=== PATIENT | female | born 1965 | race Caucasian/White ===

== ENCOUNTER 2016-09-24 06:18 | Day surgery (SDC) | payer OTHER ==
[2016-09-22 10:01] LABS: BASOPHILS 0.1 %; BASOPHILS ABSOLUTE 0.01 10/3/uL (0.0-0.16); EOSINOPHILS 0.3 %; EOSINOPHILS ABSOLUTE 0.02 10/3/uL (0.0-0.53); IMMATURE GRANULOCYTES 0.3 %; IMMATURE GRANULOCYTES ABSOLUTE 0.02 10/3/uL (0.0-0.11); LYMPHOCYTES 21.8 %; LYMPHOCYTES ABSOLUTE 1.46 10/3/uL (0.67-4.30); MEAN CORPUS HGB CONC 33.6 g/dL (32.0-36.0); MEAN CORPUSCULAR HEMOGLOB 31.4 pg (26.0-34.0); MEAN PLATELET VOLUME 9.9 fL (9.2-13.0); MONOCYTES 7.6 %; MONOCYTES ABSOLUTE 0.51 10/3/uL (0.21-1.20); NEUTROPHILS 69.9 %; NEUTROPHILS ABSOLUTE 4.69 10/3/uL (2.02-8.40); PLATELET COUNT 188 10/3/uL (150-400); RBC DISTRIBUTION WIDTH 12.5 % (12.0-16.0); RED CELL COUNT 4.52 10/6/uL (4.0-5.6); WHITE BLOOD CELLS 6.7 10/3/uL (4.5-10.5)
[2016-09-22 10:02] LABS: HEMATOCRIT 42.2 % (36.0-48.0); HEMOGLOBIN 14.2 g/dL (12.0-16.0); MANUAL DIFF NO %; MEAN CORPUSCULAR VOLUME 93.4 fL (80-100)
[2016-09-22 10:32] LABS: CA 125 II 5.9 U/ML (< 35.0); CHLORIDE, SERUM 109 MMOL/L (96-112); CO2 (CARBON DIOXIDE) 25 MMOL/L (24-34); CREATININE 1.25 MG/DL (0.55-1.02); GFR AFRICAN AMERICAN 58 ML/MIN (>=60); GFR NON AFRICAN AMERICAN 50 ML/MIN (>=60); GLUCOSE, SERUM 97 MG/DL (60-99); POTASSIUM, SERUM 4.7 MMOL/L (3.5-5.3); SODIUM, SERUM 141 MMOL/L (135-148)
[2016-09-22 10:34] LABS: BUN (BLOOD UREA NITROGEN) 14 MG/DL (6-23); CALCIUM, SERUM 9.1 MG/DL (8.5-10.4)
--- NOTE | ~2016-09-24 | OP ---
Record Of Operation [facility] [address] [place]. [address] NAME: PHILLY RAI : 65 STATUS : REG [facility]#: [id number] AGE: 51 ADM/REG DATE : 09/24/16 MR#: [id number] REPORT SERV DATE: 09/24/16 DICTATED BY: DANDY MALLORY DATE: 09/24/16 REPORT STATUS : Draft TRANSCRIBED BY: MODL DATE: 09/24/16 DATE OF PROCEDURE: 09/24/2016 PREOPERATIVE DIAGNOSIS: Ovarian cyst. POSTOPERATIVE DIAGNOSIS: Benign left ovarian cyst. PROCEDURE: Laparoscopic hysterectomy with bilateral salpingo-oophorectomy via the da Jameel laparoscopic robotic instrument, CPT code 89063. FLIGHT LINE SERVICE ATTENDANT: Juani. ESTIMATED BLOOD LOSS: 50 mL. FLUIDS: 1 L of crystalloid. COMPLICATIONS: None. INDICATIONS AND FINDINGS: This is a 51-year-old female who recently had been diagnosed with a renal cell carcinoma and underwent a right radical nephrectomy. She had a CT scan and was found to have an incidental ovarian mass. She is now being taken to the operating room for removal. Her preoperative CA-125 was normal. Intraoperatively, the mass was removed intact, examined on the back table, and appeared to be consistent with a benign ovarian cyst on the left. Her right ovary was normal. The uterus appeared to be normal. Postprocedure, a cystoscopy was performed. She had normal ureteral flow from the left kidney. There was no evidence of bladder defect. Prior to the induction of anesthesia, the patient was treated with Lovenox. She was also given prophylactic antibiotics. PROCEDURE IN DETAIL: The patient was taken to the operating room and she was placed in supine position for administration of general anesthesia. She was then placed in dorsal lithotomy position and prepped and draped in usual sterile fashion. The cervix was visualized and a BIENVENIDO uterine manipulator was placed. A NICHOLAS ring was sutured to the patient's cervix. Our attention was then turned towards the anterior abdominal wall, where an incision was made approximately 25 cm above the pubic symphysis and taken down to the underlying layer of fascia. The fascia was grasped with two sutures of 0 Vicryl, tented up, and entered sharply. The peritoneum was then tented up, entered sharply, and a laparoscopic trocar was placed under direct visualization. The abdominal cavity was insufflated, two additional 8 mm trocars were placed, one additional 12 mm trocar was placed. The patient was then docked to the laparoscopic robotic instrument and the remainder of the procedure was performed via the da Jameel with the above findings noted. Pelvic washings were taken. The retroperitoneal spaces were opened via the round ligaments, which were grasped with bipolar cautery, cauterized, and transected bilaterally. The uterine arteries were identified at their origin and hemoclips were placed to ensure long-term hemostasis. The gonadal vessels were isolated. Hemoclips were placed to ensure long-term hemostasis. They were then coagulated and transected bilaterally. The uterine arteries were then skeletonized at the level of the cervix, grasped with bipolar cautery, cauterized, and Record Of Operation [address] [address] NAME: PHILLY RAI : 65 STATUS : [place] [facility] [place]#: [id number] AGE: 51 ADM/REG DATE : 09/24/16 MR#: [id number] REPORT SERV DATE: 09/24/16 DICTATED BY: DANDY MALLORY DATE: 09/24/16 REPORT STATUS : Draft TRANSCRIBED BY: MODL DATE: 09/24/16 transected bilaterally. Anteriorly, a bladder flap was created and taken down to a level well below the cervix. The uterosacral cardinal complexes were then taken down with unipolar cautery and a circumferential incision was made around the cervix and vagina, and the uterus, tubes, ovaries, and cervix were delivered through the vagina with the above findings noted. The vaginal cuff was then closed with a running stitch of #1 PDS V-Loc. The pelvis was irrigated with copious amounts of warm water. All pedicles were inspected and found to be hemostatic. The laparoscopic instruments were removed. The gas was expelled from the abdomen. The initial incision was closed with 0 Vicryl at the fascia. The 12 mm port was also closed with 0 Vicryl at the fascia. The 8 mm ports were closed with 4-0 Vicryl at the skin and Dermabond was placed. Postprocedure, a cystoscopy was performed with the above findings noted. At the completion of the procedure, the anesthesia was reversed. The patient was extubated and brought to the recovery room in stable condition. ESAU/CONYL Dandy Mallory M.D. / [id number] CC: Linda Horta NP
[~2016-09-24 06:18] MED LIST: *DENIES; ATEN50 PO; DSS PO; PCET PO; PROPYLTHIOUR50 MG OR
== END 2016-09-24 18:06 | disposition home or self-care (01) ==
LOC: SDC 06:18
PROVIDERS: Obstetrics & Gynecology Gynecologic Oncology
PROC: 0UT24ZZ Resection of Bilateral Ovaries, Percutaneous Endoscopic Approach (ICD-10-PCS; 2016-09-24)
PROC: 0UT74ZZ Resection of Bilateral Fallopian Tubes, Percutaneous Endoscopic Approach (ICD-10-PCS; 2016-09-24)
PROC: 0UT94ZZ Resection of Uterus, Percutaneous Endoscopic Approach (ICD-10-PCS; principal; 2016-09-24 07:00)
PROC: 0UTC4ZZ Resection of Cervix, Percutaneous Endoscopic Approach (ICD-10-PCS; 2016-09-24 07:00)
DX: N83.202 Unspecified ovarian cyst, left side (principal); N80.0 Endometriosis of uterus; D25.9 Leiomyoma of uterus, unspecified; N83.11 Corpus luteum cyst of right ovary; N83.01 Follicular cyst of right ovary; N83.8 Other noninflammatory disorders of ovary, fallopian tube and broad ligament; E66.9 Obesity, unspecified; D64.9 Anemia, unspecified; Z85.528 Personal history of other malignant neoplasm of kidney; Z85.850 Personal history of malignant neoplasm of thyroid; Z90.5 Acquired absence of kidney
CPT/HCPCS: 36415; 71020; 80048; 84703; 85025; 86304; 86850; 86900; 86901; 88112; 88305; 88307; 93005; A9270-GY; J0694; J1885; J2250; J2405; J2710; J2795; J3010

== ENCOUNTER 2016-10-20 05:43 | Day surgery (SDC) | payer OTHER ==
[2016-10-14 09:26] LABS: BASOPHILS 0.3 %; BASOPHILS ABSOLUTE 0.02 10/3/uL (0.0-0.16); EOSINOPHILS 5.7 %; EOSINOPHILS ABSOLUTE 0.41 10/3/uL (0.0-0.53); HEMATOCRIT 39.2 % (36.0-48.0); HEMOGLOBIN 13.2 g/dL (12.0-16.0); IMMATURE GRANULOCYTES 0.3 %; IMMATURE GRANULOCYTES ABSOLUTE 0.02 10/3/uL (0.0-0.11); LYMPHOCYTES 23.4 %; LYMPHOCYTES ABSOLUTE 1.69 10/3/uL (0.67-4.30); MEAN CORPUS HGB CONC 33.7 g/dL (32.0-36.0); MEAN CORPUSCULAR HEMOGLOB 31.1 pg (26.0-34.0); MEAN CORPUSCULAR VOLUME 92.5 fL (80-100); MEAN PLATELET VOLUME 9.6 fL (9.2-13.0); MONOCYTES 6.1 %; MONOCYTES ABSOLUTE 0.44 10/3/uL (0.21-1.20); NEUTROPHILS 64.2 %; NEUTROPHILS ABSOLUTE 4.64 10/3/uL (2.02-8.40); RBC DISTRIBUTION WIDTH 12.1 % (12.0-16.0); RED CELL COUNT 4.24 10/6/uL (4.0-5.6); WHITE BLOOD CELLS 7.2 10/3/uL (4.5-10.5)
[2016-10-14 09:28] LABS: MANUAL DIFF NO %; PLATELET COUNT 265 10/3/uL (150-400)
[2016-10-14 09:34] LABS: PARTIAL THROMBO TIME 29.8 SEC (22.5-37.2)
[2016-10-14 09:42] LABS: BUN (BLOOD UREA NITROGEN) 12 MG/DL (6-23); CALCIUM, SERUM 8.9 MG/DL (8.5-10.4); CHLORIDE, SERUM 109 MMOL/L (96-112); CO2 (CARBON DIOXIDE) 29 MMOL/L (24-34); CREATININE 1.32 MG/DL (0.55-1.02); GFR AFRICAN AMERICAN 54 ML/MIN (>=60); GFR NON AFRICAN AMERICAN 47 ML/MIN (>=60); GLUCOSE, SERUM 101 MG/DL (60-99); POTASSIUM, SERUM 4.6 MMOL/L (3.5-5.3); SODIUM, SERUM 144 MMOL/L (135-148)
--- NOTE | ~2016-10-20 | OP ---
Record Of Operation [facility] [address] [place]. 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 PROCEDURE PERFORMED: Total thyroidectomy. SURGEON: Raquel Chaney M.D. PERFORMANCE MANAGER: Markell Bar M.D. ANESTHESIA: General. COMPLICATIONS: None. CONDITION: Stable to recovery. 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 The risks, benefits, and alternatives to surgery were explained and she agreed. PROCEDURE IN DETAIL: The patient was identified in preoperative holding, taken back to the operating room, and placed supine on the operating room table. General anesthesia was established. She was prepped and draped in a standard fashion for the operation. A nerve integrity monitoring system endotracheal tube was used, it was placed using a GlideScope under direct visualization and the anterior tap test was positive confirming appropriate electrode placement. A 5-6 cm incision was marked in a preexisting skin crease in the anterior neck two fingerbreadths above the sternal notch, and infiltrated subcutaneously with 1% lidocaine with 1:100,000 epinephrine. After a time-out was called and the patient and procedure were confirmed, the operation commenced. Using 2.5x loupe magnification and headlight illumination, made an incision in the neck using a 15 blade through the skin down to platysma. Subplatysmal flaps were elevated superiorly and inferiorly with cautery. The strap muscles were divided in the midline and the sternohyoid and sternothyroid were mobilized off the right thyroid lobe. The upper pole vessels were secured after developing the cricothyroid space using a medium hemoclip on the patient's side and Harmonic scalpel on the thyroid side. We rotated the right lobe out of the right visceral compartment identifying the upper parathyroid, dissecting it off the gland and the inferior parathyroid as well. The recurrent laryngeal nerve was identified in the tracheoesophageal groove and confirmed with the nerve stimulating probe and preserved during the case. The gland was taken off the Rivas ligament with the nerve under direct visualization and off the anterior trachea. The left lobe was excised in a similar fashion developing the cricothyroid space and ligating the upper pole vessels with two medium hemoclips as this vessel vein and artery were slightly larger using the Harmonic scalpel on the thyroid side. The left lobe was rotated out of the visceral compartment. The recurrent laryngeal nerve had an anterior and posterior branch that was dissected off the back of the gland as the inferior after rotating Record Of Operation [place] [id number] [facility] [place]. [address] NAME: PHILLY RAI : 65 STATUS : [facility]#: [id number] AGE: 51 ADM/REG DATE : 10/20/16 MR#: [id number] REPORT SERV DATE: 10/20/16 DICTATED BY: RAQUEL CHANEY DATE: 10/20/16 REPORT STATUS : Draft TRANSCRIBED BY: REHAN DATE: 10/20/16 the gland out of the visceral compartment, ligating the middle thyroid vein with medium clips and Harmonic scalpel. The nerve stimulated with the nerve stimulating probe but was less robust than the right side. It was not injured or retracted too vigorously, it was smaller than the nerve on the right side. We then dissected the gland off the Rivas ligament with the nerve under direct visualization. The inferior thyroid artery was coursing over the nerve in a vertical direction, partially covering the nerve visualization. Further dissection along the nerve did show full continuity and that this was an inferior thyroid artery variant. The nerve stimulated with the Prass probe. The left upper and lower parathyroid glands were small and dissected off the gland and preserved. Once the gland was removed, it was inspected, there were no dominant nodules. There were no parathyroid glands imbedded on the upper or lower poles or the back side of the gland. It was passed off the table for permanent pathology analysis. The wound was then irrigated with 200 mL of warm normal saline and bipolar cautery set on 10 was used to achieve hemostasis. A small strip of Surgicel was placed in each tracheoesophageal groove. The strap muscles were reapproximated with 3-0 interrupted Vicryl and the platysma was closed with 3-0 interrupted Vicryl followed by 5-0 running Monocryl and Steri-Strips. Snapshot photographs of nerve stimulation were taken at the end of the case. PH/MODL Raquel Chaney M.D. / [id number] CC: Linda Salcedo NP
[2016-10-20 07:50] LABS: PTH (INTRAOPERATIVE) 48.8 PG/ML (10.0-65.0); PTH TAT 0 Hrs 24 Mins
[2016-10-20 10:29] LABS: INTACT PTH (ICMA) 9.7 PG/ML (10.0-65.0)
== END 2016-10-20 13:08 | disposition home or self-care (01) ==
LOC: SDC 05:43
PROVIDERS: Specialist
PROC: 0GTK0ZZ Resection of Thyroid Gland, Open Approach (ICD-10-PCS; principal; 2016-10-20 06:45)
DX: E06.3 Autoimmune thyroiditis (principal); E04.9 Nontoxic goiter, unspecified; Z90.710 Acquired absence of both cervix and uterus; Z90.5 Acquired absence of kidney; Z98.890 Other specified postprocedural states
CPT/HCPCS: 80048; 83970; 85025; 85730; 88307; A9270-GY; J0690; J2250; J2370; J2405; J2550; J2710; J3010